=== PATIENT | male | born 1970 | race Caucasian/White ===

== ENCOUNTER 2017-01-24 09:15 | Outpatient (CLI) | payer MEDICAID | END 2017-01-24 09:30 | disposition home or self-care (01) | DX: I10 Essential (primary) hypertension (principal); R01.1 Cardiac murmur, unspecified ==

== ENCOUNTER 2018-02-09 08:00 | Outpatient (CLI) | payer MEDICAID | END 2018-02-09 23:59 | LOC: LAB.R 08:00 | PROVIDERS: ATTEND Family Medicine | DX: R36.9 Urethral discharge, unspecified (principal) | CPT/HCPCS: 87070; 87077; 87181; 87491; 87591 ==

== ENCOUNTER 2018-02-19 15:15 | Outpatient (CLI) | payer MEDICAID | END 2018-02-19 15:16 | disposition home or self-care (01) | LOC: LAB.R 15:15 | PROVIDERS: ATTEND Nurse Practitioner Gerontology | DX: A54.9 Gonococcal infection, unspecified (principal) | CPT/HCPCS: 87491; 87591 ==

== ENCOUNTER 2019-10-11 14:05 | Outpatient (CLI) | payer MEDICAID ==
--- NOTE | 2019-10-12 06:11 | XRAY Report ---
Reason: PAIN IN LEFT WRIST Procedure Date: 10/11/2019 Accession Number: [id number] / [id number] Procedure: XRN - Wrist 4 View LT CPT Code: Final Report FULL RESULT: EXAM: LEFT WRIST RADIOGRAPHY EXAM DATE: 10/11/2019 02:22 PM CLINICAL HISTORY: Pain in left wrist, nontraumatic. COMPARISON: None. TECHNIQUE: 4 views. FINDINGS: Bones: Normal. No fractures or bone lesions. Joints: Normal. No subluxations. Soft Tissues: Normal. No soft tissue swelling. IMPRESSION: Negative left wrist radiography. RADIA
== END 2019-10-11 14:06 | disposition home or self-care (01) ==
LOC: DI.N 14:05
PROVIDERS: ATTEND Nurse Practitioner Gerontology
DX: M25.532 Pain in left wrist (principal)

== ENCOUNTER 2021-07-29 14:20 | Emergency (ER) | payer MEDICAID ==
[2021-07-29 14:38] VITALS: BP 156/104
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
--- NOTE | 2021-07-29 15:31 | XRAY Report ---
PROCEDURE: Wrist 3 View LT INDICATIONS: MCA; left wrist pain TECHNIQUE: 3 views of the wrist were acquired. COMPARISON: None available at time of dictation. FINDINGS: Bones: There is an intra-articular mildly displaced and angulated comminuted fracture of the distal r adius. Mildly displaced ulnar styloid fracture. No dislocation. No suspicious bony lesions. Soft tissues: No suspicious soft tissue calcifications. Diffuse soft tissue swelling. IMPRESSION: Comminuted mildly displaced and angulated intra-articular fracture of the distal radius. Mildly displaced ulnar styloid fracture. Reviewed by: Rajesh Yoo DO on 07/29/2021 2:30 PM RAMY Approved by: Rajesh Yoo DO on 07/29/2021 2:30 PM RAMY Station ID: [id number]
--- NOTE | 2021-07-29 15:33 | XRAY Report ---
PROCEDURE: Forearm LT INDICATIONS: MCA; left arm swelling TECHNIQUE: 2 views of the forearm were acquired. COMPARISON: Same day wrist radiographs. FINDINGS: Bones: Again noted are the distal radius and ulnar styloid fractures. Punctate calcification along th e coronoid process of the ulna noted on the lateral view concerning for age-indeterminate fracture. Soft tissues: Soft tissue swelling. Obliquity limits evaluation for joint effusion. There is olecrano n enthesophyte at the triceps insertion. IMPRESSION: Punctate calcification along the coronoid process of the ulna may represent an age-indeterminate frac ture. Consider dedicated elbow radiographs. Unchanged alignment of the previously noted distal radius and ulnar styloid fractures. Reviewed by: Rajesh Yoo DO on 07/29/2021 2:32 PM RAMY Approved by: Rajesh Yoo DO on 07/29/2021 2:32 PM RAMY Station ID: [id number]
== END 2021-07-29 16:10 | disposition home or self-care (01) ==
LOC: ED 14:20
DX: S52.572A Other intraarticular fracture of lower end of left radius, initial encounter for closed fracture (principal); V29.9XXA Motorcycle rider (driver) (passenger) injured in unspecified traffic accident, initial encounter
CPT/HCPCS: 99283; 99284

== ENCOUNTER 2021-08-14 15:47 | Outpatient (CLI) | payer MEDICAID ==
--- NOTE | 2021-08-14 16:54 | XRAY Report ---
PROCEDURE: Wrist 3 View LT INDICATIONS: COLLES FX OF L RADIUS TECHNIQUE: 3 views of the wrist were acquired. COMPARISON: Forearm x-ray series 07/29/2021. FINDINGS: Bones: Comminuted, intraarticular fracture of the distal radius is stable compared to the prior exami nation. There is widening of the scapholunate joint concerning for scapholunate ligament injury. Disp laced ulnar styloid process fracture Soft tissues: No suspicious soft tissue calcifications. IMPRESSION: 1. Intra-articular, comminuted distal radius fracture. 2. Displaced ulnar styloid process fracture. 3. Widened scapholunate interval suspicious for scapholunate ligament injury. Recommend MRI of the wr ist for additional evaluation. Reviewed by: Gissel Antoine MD, PhD on 08/14/2021 4:53 PM PST Approved by: Gissel Antoine MD, PhD on 08/14/2021 4:53 PM PST Station ID: [id number]
== END 2021-08-14 23:59 | disposition home or self-care (01) ==
LOC: DI.N 15:47
PROVIDERS: ATTEND Orthopaedic Surgery
DX: S52.502D Unspecified fracture of the lower end of left radius, subsequent encounter for closed fracture with routine healing (principal); S52.612D Displaced fracture of left ulna styloid process, subsequent encounter for closed fracture with routine healing; R93.6 Abnormal findings on diagnostic imaging of limbs

== ENCOUNTER 2021-09-18 10:00 | Outpatient (CLI) | payer MEDICAID ==
--- NOTE | 2021-09-18 10:53 | XRAY Report ---
PROCEDURE: Elbow 3 View LT INDICATIONS: L ELBOW PX TECHNIQUE: 3 views of the elbow were acquired. COMPARISON: None FINDINGS: Bones: No fractures or dislocations. Mild degenerative changes sNo suspicious bony lesions. Soft tissues: No elbow joint effusion. No suspicious soft tissue calcifications. IMPRESSION: No acute abnormality of the left elbow. Reviewed by: Les Villareal on 09/18/2021 9:52 AM [facility] Approved by: Les Villareal on 09/18/2021 9:52 AM [facility] Station ID: [id number]
--- NOTE | 2021-09-18 10:58 | XRAY Report ---
PROCEDURE: Wrist 3 View LT INDICATIONS: COLLES FX OF L RADIUS TECHNIQUE: 3 views of the wrist were acquired. COMPARISON: None FINDINGS: Bones: Comminuted fracture of the distal radius with articular surface involvement and 3 mm step-off at the articular surface of the distal radius at the radiocarpal joint.. No suspicious bony lesions. There is widening of the scapholunate interval consistent with scapholunate ligament injury. Soft tissues: No suspicious soft tissue calcifications. IMPRESSION: 1. Intra-articular comminuted distal radius fracture with step-off of the articular surface. 2. Scapholunate interval widening consistent with scapholunate ligament injury. Reviewed by: Les Villareal on 09/18/2021 9:57 AM [facility] Approved by: Les Villareal on 09/18/2021 9:57 AM [facility] Station ID: [id number]
== END 2021-09-18 23:59 | disposition home or self-care (01) ==
LOC: DI.N 10:00
PROVIDERS: ATTEND Orthopaedic Surgery
DX: S52.532A Colles' fracture of left radius, initial encounter for closed fracture (principal)

== ENCOUNTER 2021-10-04 19:55 | Outpatient (CLI) | payer MEDICAID | END 2021-10-04 19:56 | disposition critical access hospital (66) | LOC: EMS 19:55 | DX: R06.02 Shortness of breath (principal); R53.1 Weakness; R53.81 Other malaise; R68.83 Chills (without fever); R41.0 Disorientation, unspecified; R05.9 Cough, unspecified | CPT/HCPCS: A0425; A0427 ==

== ENCOUNTER 2021-10-04 20:48 | Observation (INO) | payer MEDICAID ==
[2021-10-04 21:22] LABS: BASOPHILS % (AUTO) 0.3 %; EOSINOPHILS % (AUTO) 0.6 %; HCT - HEMATOCRIT 42.5 % (42.0-52.0); HGB - HEMOGLOBIN 14.1 g/dL (14.0-18.0); LYMPHOCYTES # (AUTO) 0.7 10^3/uL (1.5-3.5); LYMPHOCYTES % (AUTO) 18.2 %; MEAN CORPUSCULAR HEMOGLOBIN 28.4 pg (27.0-31.0); MEAN CORPUSCULAR HGB CONC 33.2 g/dL (32.0-36.0); MEAN CORPUSCULAR VOLUME 85.7 fL (80.0-94.0); MEAN PLATELET VOLUME 10.8 fL (7.4-11.4); MONOCYTES # (AUTO) 0.4 10^3/uL (0.0-1.0); MONOCYTES % (AUTO) 10.5 %; NEUTROPHILS # (AUTO) 2.5 10^3/uL (1.5-6.6); NEUTROPHILS % (AUTO) 70.1 %; PLT - PLATELET COUNT 151 10^3/uL (130-450); RED BLOOD COUNT 4.96 10^6/uL (4.70-6.10); RED CELL DISTRIBUTION WIDTH 12.4 % (12.0-15.0); WHITE BLOOD COUNT 3.6 x10^3/uL (4.8-10.8)
--- NOTE | 2021-10-04 21:23 | ED Physician Documentation ---
History of Present Illness - Stated complaint Stated Complaint: SOA - Chief complaint Chief Complaint: Resp - History obtained from History obtained from: Patient - Additonal information Additional information: 50-year-old man with no past medical history presents with productive cough for the past 5 days with progressive shortness of breath, chills, subjective fever. Patient is unvaccinated against COVID-19. Denies chest pain except when coughing. Denies hemoptysis or leg swelling. Review of Systems Ten Systems: 10 systems reviewed and negative Constitutional: reports: Fever, Chills, Myalgias, Fatigue Cardiac: reports: Chest pain / pressure Respiratory: reports: Dyspnea Neurologic: reports: Headache, Other (dizziness) PD PAST MEDICAL HISTORY - Past Medical History Past Medical History: No Cardiovascular: Hypertension Respiratory: None Neuro: None Endocrine/Autoimmune: None GI: None : None HEENT: None Psych: None Musculoskeletal: None Derm: None - Past Surgical History Past Surgical History: Yes Ortho: Hip replacement, Arthroscopic surgery, Amputation - Present Medications Home Medications: Ambulatory Orders Medication Instructions Recorded Confirmed No Known Home Medications 10/04/21 10/04/21 - Allergies Allergies/Adverse Reactions: Allergies Allergy/AdvReac Type Severity Reaction Status Date / Time No Known Drug Allergies Allergy Verified 10/04/21 21:13 - Social History Does the pt smoke?: No Smoking Status: Never smoker Does the pt drink ETOH?: No Does the pt have substance abuse?: Yes - Immunizations Immunizations are current?: Yes - POLST Patient has POLST: Yes PD ED PE NORMAL - Vitals Vital signs reviewed: Yes - General General: Alert and oriented X 3, Other (uncomfortable appearing) - HEENT HEENT: Atraumatic, PERRL, EOMI - Neck Neck: Supple, no meningeal sign - Cardiac Cardiac: RRR - Respiratory Respiratory: Other (BL coarse breath sounds. dry cough) - Abdomen Abdomen: Non tender, Non distended - Derm Derm: Normal color, Warm and dry - Extremities Extremities: No deformity, No edema - Neuro Neuro: Alert and oriented X 3, No motor deficit, No sensory deficit - Psych Psych: Normal mood, Normal affect Results - Vitals Vitals: Vital Signs - 24 hr 10/04/21 10/04/21 10/04/21 20:50 21:22 21:29 Temperature 37.2 C Heart Rate 86 86 76 Respiratory 32 H 29 H 26 H Rate Blood Pressure 105/68 103/73 103/73 O2 Saturation 89 L 95 96 10/04/21 10/04/21 10/04/21 21:46 21:56 22:47 Temperature Heart Rate 78 77 77 Respiratory 37 H 33 H 32 H Rate Blood Pressure 117/72 117/72 129/78 O2 Saturation 93 93 91 L 10/04/21 10/04/21 10/04/21 22:50 23:00 23:45 Temperature 37.0 C 36.9 C Heart Rate 78 79 87 Respiratory 28 H 25 H 18 Rate Blood Pressure 97/54 L 121/73 102/62 O2 Saturation 95 94 95 10/05/21 10/05/21 10/05/21 00:10 00:55 01:35 Temperature 37.2 C 37.5 C Heart Rate 85 79 76 Respiratory 32 H 28 H 30 H Rate Blood Pressure 125/82 H 113/67 126/82 H O2 Saturation 93 94 100 10/05/21 10/05/21 10/05/21 02:16 03:28 04:30 Temperature 37.3 C Heart Rate 75 68 66 Respiratory 27 H 26 H 20 Rate Blood Pressure 136/89 H 101/63 119/71 O2 Saturation 96 96 97 10/05/21 06:00 Temperature 36.4 C L Heart Rate 61 Respiratory 28 H Rate Blood Pressure 116/93 H O2 Saturation 94 Oxygen O2 Source Nasal cannula Oxygen Flow Rate 2 - Labs Labs: Laboratory Tests 10/04/21 10/04/21 10/04/21 21:00 21:00 21:00 WBC 3.6 L RBC 4.96 Hgb 14.1 Hct 42.5 MCV 85.7 MCH 28.4 MCHC 33.2 RDW 12.4 Plt Count 151 MPV 10.8 Neut # (Auto) 2.5 Lymph # (Auto) 0.7 L Hodgeman # (Auto) 0.4 Eos # (Auto) 0.0 Baso # (Auto) 0.0 Absolute Nucleated RBC 0.00 Nucleated RBC % 0.0 VBG pH VBG pCO2 VBG pO2 VBG HCO3 VBG Total CO2 VBG O2 Saturation VBG Base Excess Sodium 132 L Potassium 4.4 Chloride 97 L Carbon Dioxide 27 Anion Gap 8.0 BUN 20 Creatinine 1.2 Estimated GFR (MDRD) 64 L Glucose 113 H Calcium 8.0 L Total Bilirubin 0.6 AST 35 ALT 25 Alkaline Phosphatase 47 Total Protein 6.5 L Albumin 3.4 Globulin 3.1 Albumin/Globulin Ratio 1.1 Lipase 52 H Nasal Adenovirus (PCR) NOT DETECTED Nasal B. parapertussis DNA (PCR) NOT DETECTED Nasal Coronavir 229E PCR NOT DETECTED Nasal Coronavir HKU1 PCR NOT DETECTED Nasal Coronavir NL63 PCR NOT DETECTED Nasal Coronavir OC43 PCR NOT DETECTED Nasal Enterovir/Rhinovir PCR NOT DETECTED Nasal Influenza B PCR NOT DETECTED Nasal Influenza A PCR NOT DETECTED Nasal Parainfluen 1 PCR NOT DETECTED Nasal Parainfluen 2 PCR NOT DETECTED Nasal Parainfluen 3 PCR NOT DETECTED Nasal Parainfluen 4 PCR NOT DETECTED Nasal RSV (PCR) NOT DETECTED Nasal B.pertussis DNA PCR NOT DETECTED Nasal C.pneumoniae (PCR) NOT DETECTED El Human Metapneumo PCR NOT DETECTED Nasal M.pneumoniae (PCR) NOT DETECTED Nasal SARS-CoV-2 (PCR) DETECTED A 10/04/21 21:32 WBC RBC Hgb Hct MCV MCH MCHC RDW Plt Count MPV Neut # (Auto) Lymph # (Auto) Hodgeman # (Auto) Eos # (Auto) Baso # (Auto) Absolute Nucleated RBC Nucleated RBC % VBG pH 7.357 VBG pCO2 46.8 VBG pO2 26.2 VBG HCO3 25.7 VBG Total CO2 27.1 VBG O2 Saturation 48.5 L VBG Base Excess -0.3 Sodium Potassium Chloride Carbon Dioxide Anion Gap BUN Creatinine Estimated GFR (MDRD) Glucose Calcium Total Bilirubin AST ALT Alkaline Phosphatase Total Protein Albumin Globulin Albumin/Globulin Ratio Lipase Nasal Adenovirus (PCR) Nasal B. parapertussis DNA (PCR) Nasal Coronavir 229E PCR Nasal Coronavir HKU1 PCR Nasal Coronavir NL63 PCR Nasal Coronavir OC43 PCR Nasal Enterovir/Rhinovir PCR Nasal Influenza B PCR Nasal Influenza A PCR Nasal Parainfluen 1 PCR Nasal Parainfluen 2 PCR Nasal Parainfluen 3 PCR Nasal Parainfluen 4 PCR Nasal RSV (PCR) Nasal B.pertussis DNA PCR Nasal C.pneumoniae (PCR) El Human Metapneumo PCR Nasal M.pneumoniae (PCR) Nasal SARS-CoV-2 (PCR) PD MEDICAL DECISION MAKING - ED course ED course: 50-year-old man, previously healthy and unvaccinated against Covid presents with productive cough and shortness of breath for the past 5 days progressively worsening over the past 3 days associated with chills and subjective fever. Patient was acutely short of breath this evening and called 911. Upon arrival he was satting 92% on room air, brought into the emergency department without any interventions. In the ED patient appeared to be anxious and appeared to be breath-holding and taking shallow breaths with O2 sat in the mid 90s on room air. During my physical examination when I had him take deep breaths he went to 99% on room air. Patient has clinical appearance of acute Covid infection.Chest x-ray corroborates this with an atypical pneumonia consistent with Covid. He maintained oxygen saturation in the low 90s in the emergency department and has no increased wob but is tachypneic. Discussed with our hospitalist Dr. Ureña regarding bed situation and we have no bed capacity at our hospital, four patients awaiting transfer with no beds available in [facility]. will give decadron, recycle vitals, continue to monitor per hospitalist recs. d/w Dr. Ureña who would like to admit patient but there are no beds. patient will board in ED for now under hospitalist care. plan to move to floor in the morning pending discharges and staff certified nurse midwife availability. Departure - Departure Disposition: ED Place in Observation Clinical Impression: COVID-19, Hypoxia, Lightheadedness Condition: Stable
[2021-10-04 21:35] LABS: ALBUMIN 3.4 g/dL (3.2-5.5); ALBUMIN/GLOBULIN RATIO 1.1 (1.0-2.2); BILIRUBIN,TOTAL 0.6 mg/dL (0.2-1.0); CREATININE 1.2 mg/dL (0.6-1.2); POTASSIUM 4.4 mmol/L (3.5-5.0); TOTAL PROTEIN 6.5 g/dL (6.7-8.2)
[2021-10-04 21:36] LABS: VBG HCO3 25.7 mmol/L (23-28); VBG PCO2 46.8 mmHg (41-51); VBG PH 7.357 (7.31-7.41); VBG PO2 26.2 mmHg (25-47); VBG TOTAL CO2 27.1 mmol/L (24-29)
[2021-10-04 21:37] LABS: VBG BASE EXCESS -0.3 mmol/L (-2 - +2); VBG OXYGEN SATURATION 48.5 % (60-80)
[2021-10-04] MEDS ORDERED: SODIUM CHLORIDE 0.9% 500 ML IV STA (21:40)
[2021-10-04] MEDS ORDERED: CALCIUM GLUCONATE 1,000 MG in SODIUM CHLORIDE 0.9% 50 ML IV STA (21:41)
--- NOTE | 2021-10-04 21:52 | XRAY Report ---
PROCEDURE: Chest 1 View X-Ray INDICATIONS: cough, soa, fever/chills, unvaccinated against cov TECHNIQUE: One view of the chest was acquired. COMPARISON: None. FINDINGS: Surgical changes and devices: None. Lungs and pleura: There are patchy bilateral indistinct airspace opacities. No pleural effusions or pneumothorax. Mediastinum: Mediastinal contours appear normal. Heart size is normal. Bones and chest wall: No suspicious bony lesions. Overlying soft tissues appear unremarkable. IMPRESSION: 1. Bilateral patchy indistinct airspace opacities likely represent atypical pneumonia. Reviewed by: Justin Griffin MD on 10/04/2021 9:51 PM PST Approved by: Justin Griffin MD on 10/04/2021 9:51 PM PST Station ID: [id number]
[2021-10-04] MEDS ORDERED: CALCIUM GLUCONATE 1000 MG/10 ML VIAL ONE (22:35)
[2021-10-04] MEDS ORDERED: DEXAMETHASONE 10 MG/ML VIAL IVP STA (23:31)
[2021-10-05] MEDS ORDERED: oxyCODONE 5 MG TABLET PO PRN (00:45)
[2021-10-05] MEDS ORDERED: SODIUM CHLORIDE FLUSH 0.9% 10 ML SYRINGE IVP PRN (00:45)
[2021-10-05] MEDS ORDERED: ONDANSETRON 4 MG/2 ML VIAL IVP PRN (00:45)
[2021-10-05] MEDS: SODIUM CHLORIDE FLUSH 0.9% 10 ML SYRINGE IVP SCH ×3 (01:00→21:04)
--- NOTE | 2021-10-05 01:00 | HISTORY & PHYSICAL EXAMINATION ---
Chief Complaint - Chief Complaint Chief Complaint: cough, dyspnea, bodyaches, weakness History of Present Illness - Admitted From Admitted From:: [facility] ED - History Obtained From Records Reviewed: yes History obtained from: patient - History of Present Illness HPI Comment/Other: Patient is a 50-year-old male who presented to the ED with complaint of cough with deep inspiration, fever and body aches. He also appears very weak. His symptoms have been going on for the past 5 days. He presented to the ED today because of its persistence and he was unable to tolerate it any further. In the ED he was noted to be tachypneic with a respiratory rate as high as mid 30s. His oxygen saturation will occasionally drop into the 80s. Work-up included a COVID-19 test which was positive. He is unvaccinated for COVID-19. He also had a chest x-ray which showed bilateral patchy indistinct airspace opacities likely representing atypical pneumonia. As a result of his tachypnea and occasional hypoxia he was presented for admission for further management and observation. At bedside he reports a pleuritic chest pain. He denies abdominal pain but reports nausea and vomiting. History - Past Medical History Cardiovascular: reports: Hypertension Respiratory: reports: None Neuro: reports: None Endocrine/Autoimmune: reports: None GI: reports: None : reports: None HEENT: reports: None Psych: reports: None Musculoskeletal: reports: None Derm: reports: None MRSA Hx?: No - Past Surgical History Ortho: reports: Hip replacement, Arthroscopic surgery, Amputation, Other (L wrist fx, screws in right ankle) - Family & Social History Family History Comment/Other: His father had lung cancer. Social History Notes: He lives alone. He denies alcohol, tobacco or recreational substance use. - POLST Patient has POLST: No POLST Status: Full Code Meds/Allgy - Home Medications Home Medications: Ambulatory Orders Medication Instructions Recorded Confirmed No Known Home Medications 10/04/21 10/04/21 - Allergies Allergies/Adverse Reactions: Allergies Allergy/AdvReac Type Severity Reaction Status Date / Time No Known Drug Allergies Allergy Verified 10/04/21 21:13 Review of Systems - Constitutional Constitutional: reports: Fever, Chills, Malaise, Weakness - Eyes Eyes: denies: Pain, Dipolpia - Ears, Nose & Throat Ears, Nose & Throat: denies: Ear pain - Cardiovascular Cariovascular: denies: Irregular heart rate, Palpitations, Chest pain, Lightheadedness, Syncope - Respiratory Respiratory: reports: Cough, SOB at rest, SOB with exertion, Pleuritic pain. denies: Sputum production, Wheezing - Gastrointestinal Gastrointestinal: reports: Nausea, Vomiting. denies: Abdominal pain, Abdominal distention, Constipation, Diarrhea, Change in bowel habits, Reflux/heartburn - Genitourinary Genitourinary: denies: Dysuria, Frequency, Urgency, Hematuria - Musculoskeletal Musculoskeletal: denies: Muscle pain, Back pain, Muscle aches - Integumentary Integumentary: denies: Rash, Pruritis, Lesions, Dryness - Neurological Neurological: denies: Focal weakness, Headache, Dizziness - Psychiatric Psychiatric: denies: Depression, Anxiety - Endocrine Endocrine: denies: Polyuria, Polydypsia - Hematologic/Lymphatic Hematologic/Lymphatic: denies: Anemia, Bruising, Petechiae Prior Level of Functionality: He is independent of activities of daily living Exam - Vital Signs Vital Signs: Vital Signs x48h Temp Pulse Resp BP Pulse Ox 10/05/21 00:10 85 32 H 125/82 H 93 10/04/21 23:45 87 18 102/62 95 10/04/21 23:00 36.9 C 79 25 H 121/73 94 10/04/21 22:50 37.0 C 78 28 H 97/54 L 95 10/04/21 22:47 77 32 H 129/78 91 L 10/04/21 21:56 77 33 H 117/72 93 10/04/21 21:46 78 37 H 117/72 93 10/04/21 21:29 76 26 H 103/73 96 10/04/21 21:22 86 29 H 103/73 95 10/04/21 20:50 37.2 C 86 32 H 105/68 89 L - Physical Exam General Appearance: positive: Alert, Mild distress, Moderate distress Eyes Bilateral: positive: PERRL, EOMI ENT: positive: Dry mucous membranes Neck: positive: No JVD, Trachea midline Respiratory: positive: Other (Moderate respiratory distress. Coarse breath soun ds with crackles, Tachypneic) Cardiovascular: positive: Regular rate & rhythm, No murmur Abdomen: positive: Non-tender, No organomegaly, Nml bowel sounds, No distention. negative: Guarding, Rebound Back: positive: Nml inspection Skin: positive: Color nml, No rash, Warm, Dry Extremities: positive: Non-tender, Full ROM, Nml appearance, No pedal edema Neurologic/Psychiatric: positive: Oriented x3, Mood/affect nml Conclusion/Plan - Problem List (1) Acute respiratory failure with hypoxia Conclusion/Plan: Likely secondary to COVID-19 pneumonia. Patient's respiratory rate was as high as 36 with intermittent drop in oxygen saturation to the 80s. Chest x-ray showed airway opacities for which atypical pneumonia was on the differential. Patient given Decadron 10 mg IV x1. We will continue Decadron 6 mg IV daily. Azithromycin 500 mg IV daily x3 days. Rocephin 1 g IV daily x5 days. Supplemental oxygen as needed. Lovenox 40 mg subcu for DVT prophylaxis. (2) COVID-19 Conclusion/Plan: Patient is unvaccinated for COVID-19. Patient given Decadron 10 mg IV x1. We will continue Decadron 6 mg IV daily. Azithromycin 500 mg IV daily x3 days. Rocephin 1 g IV daily x5 days. Supplemental oxygen as needed. Lovenox 40 mg subcu for DVT prophylaxis. (3) Dehydration Conclusion/Plan: Gentle IV hydration with normal saline at 100 mL/h. - Lab Results Fish Bones: 10/04/21 21:00 10/04/21 21:00 Core Measures - Anticipated LOS I expect patient to be DC'd or transferred within 96 hours.: Yes - DVT/VTE - Prophylaxis VTE/DVT Device ordered at admit?: Yes VTE/DVT Prophylaxis med ordered at admit?: Yes
[2021-10-05 01:20] LABS: CORONAVIRUS 229E-RESP PCR NOT DETECTED; CORONAVIRUS HKU1-RESP PCR NOT DETECTED; CORONAVIRUS NL63-RESP PCR NOT DETECTED; CORONAVIRUS OC43-RESP PCR NOT DETECTED
[2021-10-05 01:21] LABS: HUMAN METAPNEUMOVIRUS NOT DETECTED; RHINOVIRUS/ENTEROVIRUS NOT DETECTED; SARS-CoV-2 -RESP PCR PANEL DETECTED
[2021-10-05 01:22] LABS: B. PARAPERTUSSIS- RESP PCR PAN NOT DETECTED; B. PERTUSSIS- RESP PCR PANEL NOT DETECTED; C. PNEUMONIAE- RESP PCR PANEL NOT DETECTED; INFLUENZA A- RESP PCR PANEL NOT DETECTED; INFLUENZA B - RESP PCR PANEL NOT DETECTED; M. PNEUMONIAE- RESP PCR PANEL NOT DETECTED; PARAINFLUENZA VIRUS 1 NOT DETECTED; PARAINFLUENZA VIRUS 2 NOT DETECTED; PARAINFLUENZA VIRUS 3 NOT DETECTED; PARAINFLUENZA VIRUS 4 NOT DETECTED; RSV- RESP PCR PANEL NOT DETECTED
[2021-10-05] MEDS ORDERED: SODIUM CHLORIDE 0.9% 1,000 ML IV SCH (02:00)
[2021-10-05 06:32] LABS: BASOPHILS % (AUTO) 0.3 %; HCT - HEMATOCRIT 43.2 % (42.0-52.0); HGB - HEMOGLOBIN 14.6 g/dL (14.0-18.0); LYMPHOCYTES # (AUTO) 0.7 10^3/uL (1.5-3.5); LYMPHOCYTES % (AUTO) 19.1 %; MEAN CORPUSCULAR HEMOGLOBIN 28.9 pg (27.0-31.0); MEAN CORPUSCULAR HGB CONC 33.8 g/dL (32.0-36.0); MEAN CORPUSCULAR VOLUME 85.4 fL (80.0-94.0); MEAN PLATELET VOLUME 10.3 fL (7.4-11.4); MONOCYTES # (AUTO) 0.2 10^3/uL (0.0-1.0); MONOCYTES % (AUTO) 5.2 %; NEUTROPHILS # (AUTO) 2.9 10^3/uL (1.5-6.6); NEUTROPHILS % (AUTO) 74.9 %; PLT - PLATELET COUNT 155 10^3/uL (130-450); RED BLOOD COUNT 5.06 10^6/uL (4.70-6.10); RED CELL DISTRIBUTION WIDTH 12.5 % (12.0-15.0); WHITE BLOOD COUNT 3.8 x10^3/uL (4.8-10.8)
[2021-10-05 06:43] LABS: CALCIUM 8.1 mg/dL (8.5-10.3); POTASSIUM 4.4 mmol/L (3.5-5.0)
[2021-10-05] MEDS ORDERED: AZITHROMYCIN INJ 500 MG in SODIUM CHLORIDE 0.9% 250 ML IV SCH (09:00)
[2021-10-05] MEDS ORDERED: DEXAMETHASONE 20 MG/5 ML VIAL IVP SCH (09:00)
[2021-10-05] MEDS ORDERED: SODIUM CHLORIDE 0.9% 1,000 ML IV ONE (09:18)
--- NOTE | 2021-10-05 09:33 | PHARMACY PROGRESS NOTE ---
- Best Possible Medication History Admit Date and Time: 10/05/21 0045 Processed by: Nursing Medication History completed: Yes As the person ultimately responsible for medication therapy, providers are able to order a medication from an existing home medication list in [facility] via the "Reconcile Routine" prior to Confirmation of that medication by research support specialist. Such practice is discouraged except when the physician, in their clinical judgment, deems that a medical need exists for a medication without regard to previous use.
[2021-10-05] MEDS: cefTRIAXone 1 GM in SODIUM CHLORIDE 0.9% MINIBAG 100 ML IV SCH (09:57)
[2021-10-05] MEDS: ENOXAPARIN 40 MG/0.4 ML SYRINGE SUBQ SCH (09:57)
[2021-10-05] MEDS: DEXAMETHASONE 4 MG/ML VIAL IVP SCH (09:58)
[2021-10-05] MEDS: ACETAMINOPHEN 325 MG TABLET PO PRN (09:58)
[2021-10-05] MEDS: AZITHROMYCIN INJ 500 MG in SODIUM CHLORIDE 0.9% 250 ML IV SCH (11:06)
[2021-10-05] MEDS ORDERED: REMDESIVIR 100MG VIAL 200 MG in SODIUM CHLORIDE 0.9% 250 ML IV ONE (11:30)
[2021-10-05] MEDS: BENZONATATE 100 MG CAPSULE PO PRN (13:44)
[2021-10-05] MEDS: guaiFENesin 600 MG TABLET PO SCH ×2 (13:44→21:04)
[2021-10-06] MEDS: SODIUM CHLORIDE FLUSH 0.9% 10 ML SYRINGE IVP SCH ×2 (00:21→10:07)
[2021-10-06] MEDS: BENZONATATE 100 MG CAPSULE PO PRN (00:34)
[2021-10-06 05:49] LABS: BASOPHILS % (AUTO) 0.2 %; HCT - HEMATOCRIT 44.2 % (42.0-52.0); HGB - HEMOGLOBIN 14.8 g/dL (14.0-18.0); LYMPHOCYTES # (AUTO) 0.9 10^3/uL (1.5-3.5); LYMPHOCYTES % (AUTO) 9.3 %; MEAN CORPUSCULAR HGB CONC 33.5 g/dL (32.0-36.0); MEAN CORPUSCULAR VOLUME 86.5 fL (80.0-94.0); MONOCYTES # (AUTO) 0.5 10^3/uL (0.0-1.0); MONOCYTES % (AUTO) 5.5 %; NEUTROPHILS # (AUTO) 7.7 10^3/uL (1.5-6.6); NEUTROPHILS % (AUTO) 84.7 %; PLT - PLATELET COUNT 171 10^3/uL (130-450); RED BLOOD COUNT 5.11 10^6/uL (4.70-6.10); RED CELL DISTRIBUTION WIDTH 12.4 % (12.0-15.0); WHITE BLOOD COUNT 9.1 x10^3/uL (4.8-10.8)
[2021-10-06 06:02] LABS: CALCIUM 8.3 mg/dL (8.5-10.3); CREATININE 0.9 mg/dL (0.6-1.2); POTASSIUM 4.2 mmol/L (3.5-5.0)
[2021-10-06] MEDS ORDERED: REMDESIVIR 100MG VIAL 100 MG in SODIUM CHLORIDE 0.9% 100ML 100 ML IV SCH (09:00)
[2021-10-06] MEDS: cefTRIAXone 1 GM in SODIUM CHLORIDE 0.9% MINIBAG 100 ML IV SCH (10:02)
[2021-10-06] MEDS: ENOXAPARIN 40 MG/0.4 ML SYRINGE SUBQ SCH (10:06)
[2021-10-06] MEDS: DEXAMETHASONE 4 MG/ML VIAL IVP SCH (10:07)
[2021-10-06] MEDS: guaiFENesin 600 MG TABLET PO SCH (10:07)
[2021-10-06 10:23] VITALS: BP 149/91
[2021-10-06] MEDS: ACETAMINOPHEN 325 MG TABLET PO PRN (10:46)
[2021-10-06] MEDS: AZITHROMYCIN INJ 500 MG in SODIUM CHLORIDE 0.9% 250 ML IV SCH (11:23)
--- NOTE | 2021-10-06 11:56 | PROVIDER PROGRESS NOTE ---
Subjective - Prog Note Date Prog Note Date: 10/06/21 - Subjective Pt reports feeling: No change, Worse Objective - Vital Signs/Intake & Output Reviewed Vital Signs: Yes Vital Signs: Vital Signs x48h Temp Pulse Resp BP Pulse Ox 10/06/21 10:19 37.4 C 86 19 149/91 H 2 L 10/06/21 04:07 37.4 C 83 18 136/80 H 93 Intake & Output: Intake & Output 10/03/21 10/04/21 10/05/21 10/06/21 23:59 23:59 23:59 23:59 Intake Total 580 3020 1100 Output Total 1350 500 Balance 580 1670 600 - Objective General Appearance: positive: Alert, Mild distress, Anxious Eyes Bilateral: positive: Normal inspection, PERRL ENT: positive: ENT inspection nml, No signs of dehydration, Other (Moist oral mucosa) Respiratory: positive: Chest non-tender, Other (coarse breath sounds bilaterally, dry cough) Cardiovascular: positive: Regular rate & rhythm, No murmur Peripheral Pulses: 2+ Dorsalis pedis (R), 2+ Dorsalis pedis (L) Abdomen: positive: Non-tender, No organomegaly, Nml bowel sounds, No distention Skin: positive: Diaphoresis, Pallor Extremities: positive: Non-tender, Full ROM, Nml appearance Neurologic/Psychiatric: positive: Oriented x3 - Lab Results Fish Bones: 10/06/21 05:40 10/06/21 05:40 Other Labs: Lab Results x24hrs 10/06/21 10/06/21 Range/Units 05:40 05:40 WBC 9.1 (4.8-10.8) x10^3/uL RBC 5.11 (4.70-6.10) 10^6/uL Hgb 14.8 (14.0-18.0) g/dL Hct 44.2 (42.0-52.0) % MCV 86.5 (80.0-94.0) fL MCH 29.0 (27.0-31.0) pg MCHC 33.5 (32.0-36.0) g/dL RDW 12.4 (12.0-15.0) % Plt Count 171 (130-450) 10^3/uL MPV 10.0 (7.4-11.4) fL Neut # (Auto) 7.7 H (1.5-6.6) 10^3/uL Lymph # (Auto) 0.9 L (1.5-3.5) 10^3/uL [place] # (Auto) 0.5 (0.0-1.0) 10^3/uL Eos # (Auto) 0.0 (0.0-0.7) 10^3/uL Baso # (Auto) 0.0 (0.0-0.1) 10^3/uL Absolute Nucleated RBC 0.00 x10^3/uL Nucleated RBC % 0.0 /100WBC Sodium 135 (135-145) mmol/L Potassium 4.2 (3.5-5.0) mmol/L Chloride 97 L (101-111) mmol/L Carbon Dioxide 28 (21-32) mmol/L Anion Gap 10.0 (6-13) BUN 19 (6-20) mg/dL Creatinine 0.9 (0.6-1.2) mg/dL Estimated GFR (MDRD) 89 (>89) Glucose 109 H (70-100) mg/dL Calcium 8.3 L (8.5-10.3) mg/dL ABX Reporting Has patient been on IV antibiotics over the past 48 hours?: Yes Sepsis Event Note (H) - Evaluation Current Stage of Sepsis: Ruled out
[2021-10-06] MEDS ORDERED: INSULIN ASPART 300 UNIT/3 ML PEN SUBQ SCH (12:00)
--- NOTE | 2021-10-06 13:03 | Discharge Plan ---
Discharge Plan Problem Reviewed?: Yes Disposition: Home, Self Care Condition: Stable Prescriptions: Amoxicillin 500 mg PO TID #12 tablet dexAMETHasone [Decadron] 6 mg PO DAILY 7 Days #7 tablet Azithromycin Inj [Zithromax Inj] 500 mg PO ONCE 1 Days #1 tablet Diet: Regular Activity Restrictions: Activity as Tolerated Instruction Topics: COVID-19 [facility], COVID-19 [facility] Department Statement Health Concerns: You were admitted with shortness of breath and feeling ill after being diagnosed with covid 19 pneumonia. You have required oxygen overnight and this morning and have oxygen saturations on room air of 90-92%. You have received 2 doses each of steroids and antibiotics as well as 2 doses of Remdesivir, an inpatient treatment for COVID 19. You can eat a regular diet. You also may feel tired for multiple days and should rest as able. I do not recommend trying to exercise while you have shortness of breath as it may take longer for you to recover. Stay hydrated by drinking plenty of fluids, including water and gatorade or drinks with electrolytes. Please take all doses of your antibiotics and steroids for your treatment. If you get home and feel short of breath and unable to catch your breath again, or feel as if you are getting worse with increased fevers, cough and pain, please return to the ER for further follow up. Plan of Treatment: Please make sure you rest and drink plenty of fluids. Finish all medications as prescribed. Please return to the ED if you have a fever greater than 101.5, feel short of breath and unable to get enough oxygen, or have increased pain and overall feelings of getting worse. Care Goals: As above. Assessment: Pt verbalized understanding of the above. Additional Instructions or Follow Up instructions: Follow up instructions given as above. Please follow up with your Primary Care Physician if needed. You should isolate at home for 5 days until 10/10 and can leave home at that time if your symptoms are improving and you have not had a fever in 24 hours. Please wear a mask in public. If you choose to be vaccinated please wait until all symptoms have resolved. No Smoking: If you smoke, Please STOP! Call for help.
--- NOTE | 2021-10-06 13:29 | DISCHARGE SUMMARY ---
Discharge Summary Admit Date: 10/05/21 Discharge Date: 10/06/21 Discharging Provider: TIMOTHY Diamond Primary Care Provider: Anisa Mcfarland Code Status: Attempt Resuscitation Condition at Discharge: Stable Discharge Disposition: 01 Home, Self Care - DIAGNOSES Admission Diagnoses: 1. Acute respiratory failure with hypoxia 2. COVID-19 3. Dehydration Discharge Diagnoses with Status of Each Condition: (1) Acute respiratory failure with hypoxia Impression: Stable. Secondary to COVID 19 pneumonia. On admission his respiratory rate was in the 30s but was 18 overnight and this morning. He was requiring 2L NC for saturations 92%, per nursing desats to 89-90 on room air when ambulating. CXR on admission showed airway opacities and included atypical pneumonia on the differential. He was started on IV antibiotics, for which this is day 2. Declines to stay and is planning to discharge today despite it being strongly recommended that he stay for continued IV treatment and oxygen monitoring. I checked his oxygen saturation after he ambulated to the bathroom and he was 90- 91% on room air. (2) COVID-19 Impression: Stable. He is unvaccinated and reports symptoms started approximately one week ago. His girlfriend and friend also had symptoms but those resolved quickly and he does not think they got tested. He received first doses of Decadron and Remdesivir yesterday. He has been using oxygen but has decided he needs to go home today. On room air he was saturating 90-91% at rest and with ambulation. He has a headache, treated with Tylenol. (3) Dehydration Impression: Improved. Physical exam yesterday revealed dry mucus membranes. Today his oral mucosa is moist and he has been drinking water and juice. - HPI History of Present Illness: From Dr. Ureña's 10/05 HPI: "Patient is a 50-year-old male who presented to the ED with complaint of cough with deep inspiration, fever and body aches. He also appears very weak. His symptoms have been going on for the past 5 days. He presented to the ED today because of its persistence and he was unable to tolerate it any further. In the ED he was noted to be tachypneic with a respiratory rate as high as mid 30s. His oxygen saturation will occasionally drop into the 80s. Work-up included a COVID-19 test which was positive. He is unvaccinated for COVID-19. He also had a chest x-ray which showed bilateral patchy indistinct airspace opacities likely representing atypical pneumonia. As a result of his tachypnea and occasional hypoxia he was presented for admission for further management and observation. At bedside he reports a pleuritic chest pain. He denies abdominal pain but reports nausea and vomiting." - HOSPITAL COURSE Hospital Course: Pt admitted under observation status with dyspnea and hypoxia requiring oxygen. He was started on Decadron and Remdesivir as well as IV antibiotics for atypical pneumonia felt to be seen on x-ray. He did not sleep well overnight due to hip pain and difficulties getting comfortable. In the morning he was anxious and requesting to go home. He had a dry cough and a headache, treated with Tylenol, and at first felt he was "worse" but after lunch felt "I'm getting better and I need to go home to work out and get better food." I visited him twice today and encouraged him to stay one more night for continued oxygen monitoring given his borderline oxygen saturations on room air, and for IV treatment with steroids and antibiotics, however he was adamant about going home despite discussing the risks. I checked his oxygen after he walked to the bathroom prior to leaving and his saturation remained 90-91% on room air. He was afebrile over his stay, slightly hypertensive. His WBC was 9 this morning and he recieved 2 doses of each of his IV antibiotics. He was agreeable to discharging home with oral antibiotics and steroids for continued treatment and given strict return instructions. - ALLERGIES Allergies/Adverse Reactions: Allergies Allergy/AdvReac Type Severity Reaction Status Date / Time No Known Drug Allergies Allergy Verified 10/04/21 21:13 - MEDICATIONS Home Medications: Ambulatory Orders Medication Instructions Recorded Confirmed Amoxicillin 500 mg PO TID #12 tablet 10/06/21 Azithromycin Inj [Zithromax Inj] 500 mg PO ONCE 1 Days #1 tablet 10/06/21 dexAMETHasone [Decadron] 6 mg PO DAILY 7 Days #7 tablet 10/06/21 - PHYSICAL EXAM AT DISCHARGE General Appearance: positive: Alert, Anxious Eyes Bilateral: positive: Normal inspection, PERRL ENT: positive: ENT inspection nml, Other (Moist mucus membranes) Respiratory: positive: Chest non-tender, No respiratory distress, Other (coarse crackles noted in the bilateral bases, dry cough) Cardiovascular: positive: Regular rate & rhythm, No murmur Peripheral Pulses: positive: 2+ Abdomen: positive: Non-tender, Nml bowel sounds, No distention Skin: positive: Diaphoresis, Pallor Extremities: positive: Non-tender, Full ROM, Nml appearance Neurologic/Psychiatric: positive: Oriented x3 - LABS Result Diagrams: 10/06/21 05:40 10/06/21 05:40 - DIAGNOSTIC IMAGING Diagnostic Imaging Results: Final report reviewed - SEPSIS Current Stage of Sepsis: Ruled out - TIME SPENT Time Spent in Discharge (Minutes): 45
[2021-10-06 14:49] LABS: ESTIMATED AVERAGE GLUCOSE 111 mg/dL (70-100); HEMOGLOBIN A1c% 5.5 % (4.27-6.07)
== END 2021-10-06 15:05 | disposition home or self-care (01) ==
LOC: EDUNIT# → ED 20:48 → MS2 10-05 00:45
PROVIDERS: ADMIT Internal Medicine; ATTEND Registered Nurse
DX: U07.1 COVID-19 (principal); J12.82 Pneumonia due to coronavirus disease 2019; J96.01 Acute respiratory failure with hypoxia; E86.0 Dehydration; I10 Essential (primary) hypertension; Z53.29 Procedure and treatment not carried out because of patient's decision for other reasons
CPT/HCPCS: 0202U; 36415; 71045; 80048; 80053; 82803; 83036; 83690; 85025; 85379; 86140; 96365; 96366; 96367; 96368; 96372; 96375; 96376; 99283; 99285; A9270; G0378; J1650; J7040

== ENCOUNTER 2023-08-08 22:34 | Outpatient (CLI) | payer MEDICAID, OTHER | END 2023-08-08 22:35 | disposition critical access hospital (66) | LOC: MERGE 22:34 → EMS 22:34 | DX: S29.9XXA Unspecified injury of thorax, initial encounter (principal); S49.92XA Unspecified injury of left shoulder and upper arm, initial encounter; S40.812A Abrasion of left upper arm, initial encounter; S40.811A Abrasion of right upper arm, initial encounter; S80.812A Abrasion, left lower leg, initial encounter; S80.811A Abrasion, right lower leg, initial encounter; R07.89 Other chest pain; R06.02 Shortness of breath; R61 Generalized hyperhidrosis; V20.49XA Other motorcycle driver injured in collision with pedestrian or animal in traffic accident, initial encounter; Y92.413 State road as the place of occurrence of the external cause | CPT/HCPCS: A0425; A0427; A0999 ==

== ENCOUNTER 2023-08-08 23:05 | Emergency (ER) | payer MEDICAID, OTHER ==
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
[2023-08-08] MEDS ORDERED: ONDANSETRON 4 MG/2 ML VIAL IVP STA (23:25)
[2023-08-08] MEDS ORDERED: MORPHINE 2 MG/ML CARPUJECT IVP STA (23:25)
[2023-08-08 23:38] LABS: BASOPHILS # (AUTO) 0.1 10^3/uL (0.0-0.1); BASOPHILS % (AUTO) 0.6 %; EOSINOPHILS # (AUTO) 0.2 10^3/uL (0.0-0.7); EOSINOPHILS % (AUTO) 2.6 %; HCT - HEMATOCRIT 45.6 % (42.0-52.0); HGB - HEMOGLOBIN 15.3 g/dL (14.0-18.0); LYMPHOCYTES # (AUTO) 1.5 10^3/uL (1.5-3.5); LYMPHOCYTES % (AUTO) 16.2 %; MEAN CORPUSCULAR HEMOGLOBIN 29.1 pg (27.0-31.0); MEAN CORPUSCULAR HGB CONC 33.6 g/dL (32.0-36.0); MEAN CORPUSCULAR VOLUME 86.9 fL (80.0-94.0); MEAN PLATELET VOLUME 10.5 fL (7.4-11.4); MONOCYTES # (AUTO) 0.8 10^3/uL (0.0-1.0); MONOCYTES % (AUTO) 9.4 %; NEUTROPHILS # (AUTO) 6.4 10^3/uL (1.5-6.6); NEUTROPHILS % (AUTO) 70.8 %; PLT - PLATELET COUNT 219 10^3/uL (130-450); RED BLOOD COUNT 5.25 10^6/uL (4.70-6.10); RED CELL DISTRIBUTION WIDTH 12.3 % (12.0-15.0)
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
[2023-08-08 23:52] LABS: ALBUMIN 4.3 g/dL (3.2-5.5); ALBUMIN/GLOBULIN RATIO 1.9 (1.0-2.2); ALKALINE PHOSPHATASE 55 IU/L (42-121); ALT ALANINE AMINOTRANSFERASE 22 IU/L (10-60); AST ASPARTATE AMINOTRANSFERASE 30 IU/L (10-42); BILIRUBIN,TOTAL 0.4 mg/dL (0.2-1.0); BUN - BLOOD UREA NITROGEN 20 mg/dL (6-20); CALCIUM 9.6 mg/dL (8.5-10.3); CARBON DIOXIDE - CO2 30 mmol/L (21-32); CHLORIDE 103 mmol/L (101-111); CREATININE 1.2 mg/dL (0.6-1.3); ETOH - ETHANOL < 10.0 mg/dL; GFR - MDRD 63 (>89); GLUCOSE 112 mg/dL (74-104); LIPASE 47 U/L (11-82); POTASSIUM 3.9 mmol/L (3.5-4.5); SODIUM 139 mmol/L (135-145); TOTAL PROTEIN 6.6 g/dL (6.4-8.9)
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
[2023-08-09] MEDS ORDERED: ZOLPIDEM 5 MG TABLET PO PRN (00:08)
[2023-08-09] MEDS ORDERED: ONDANSETRON ODT 4 MG TABLET TL PRN (00:08)
[2023-08-09] MEDS ORDERED: IBUPROFEN 400 MG TABLET PO PRN (00:08)
[2023-08-09] MEDS ORDERED: ACETAMINOPHEN 325 MG TABLET PO PRN (00:08)
[2023-08-09] MEDS ORDERED: ONDANSETRON 4 MG/2 ML VIAL IVP PRN (00:08)
[2023-08-09] MEDS ORDERED: SODIUM CHLORIDE FLUSH 0.9% 10 ML SYRINGE IVP PRN (00:08)
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
[2023-08-09] MEDS: oxyCODONE 5 MG TABLET PO PRN ×2 (00:40→04:37)
[2023-08-09] MEDS ORDERED: iohexoL-300 100 ML VIAL IVP ONE (00:43)
[2023-08-09] MEDS ORDERED: SODIUM CHLORIDE FLUSH 0.9% 10 ML SYRINGE IVP SCH (01:00)
[2023-08-09] MEDS ORDERED: LACTATED RINGERS 1,000 ML IV SCH (01:00)
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
[2023-08-09 02:09] LABS: BILIRUBIN,URINE NEGATIVE (NEGATIVE); GLUCOSE, URINE (UA) NEGATIVE (NEGATIVE); KETONES,URINE (UA) NEGATIVE (NEGATIVE); LEUKOCYTE ESTERASE, URINE NEGATIVE (NEGATIVE); NITRITE,URINE NEGATIVE (NEGATIVE); OCCULT BLOOD,URINE NEGATIVE (NEGATIVE); PH,URINE 6.5 PH (5.0-7.5); PROTEIN,URINE NEGATIVE (NEGATIVE); UROBILINOGEN,URINE 0.2 (NORMAL) E.U./dL (NORMAL)
[2023-08-09 02:12] LABS: CLARITY,URINE CLEAR (CLEAR)
[2023-08-09] MEDS ORDERED: TETANUS/DIPHTHERIA/PERTUSSIS 0.5 ML SYRINGE IM ONE (03:50)
[2023-08-09] MEDS ORDERED: FAMOTIDINE 20 MG TABLET PO SCH (09:00)
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
[2023-08-09 10:53] VITALS: BP 138/89; O2SAT 95
[2023-08-09] MEDS ORDERED: HYDROmorphone 1 MG/ML CARPUJECT IM STA (12:38)
== END 2023-08-09 13:02 | disposition home or self-care (01) ==
LOC: MERGE 23:05 → ED 23:05
DX: S42.032A Displaced fracture of lateral end of left clavicle, initial encounter for closed fracture (principal); S22.42XA Multiple fractures of ribs, left side, initial encounter for closed fracture; V20.09XA Other motorcycle driver injured in collision with pedestrian or animal in nontraffic accident, initial encounter; Z23 Encounter for immunization
CPT/HCPCS: 36415; 70450; 71045; 71260; 72125; 74177; 80053; 80320; 81003; 83690; 85025; 90471; 90715; 96372; 96374; 99284; A9270; J1170; J7120; Q9967; 81001; 87086

== ENCOUNTER 2023-08-14 08:00 | Outpatient (CLI) | payer MEDICAID ==
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
== END 2023-08-14 23:59 | disposition home or self-care (01) ==
LOC: DI.WOS 08:00
PROVIDERS: ATTEND Orthopaedic Surgery
DX: S42.012A Anterior displaced fracture of sternal end of left clavicle, initial encounter for closed fracture (principal)

== ENCOUNTER 2023-09-11 08:00 | Outpatient (CLI) | payer MEDICAID ==
--- NOTE | 2023-09-11 11:43 | XRAY Report ---
PROCEDURE: Clavicle LT INDICATIONS: LEFT CLAVICLE FRACTURE TECHNIQUE: 2 views of the clavicle were acquired. COMPARISON: Clavicle x-ray 08/14/2023. FINDINGS: Bones: Midshaft left clavicle fracture with inferior displacement of the distal fracture fragment, s imilar alignment compared to prior. There is increased callus formation. No suspicious bony lesions. Soft tissues: No suspicious soft tissue calcifications or masses. IMPRESSION: Healing left clavicle fracture. Reviewed by: Victor Manuel Ruby MD on 09/11/2023 11:42 AM PST Approved by: Victor Manuel Ruby MD on 09/11/2023 11:42 AM PST Station ID: [id number]
== END 2023-09-11 23:59 | disposition home or self-care (01) ==
LOC: DI.WOS 08:00
PROVIDERS: ATTEND Orthopaedic Surgery
DX: S42.022D Displaced fracture of shaft of left clavicle, subsequent encounter for fracture with routine healing (principal)